=== PATIENT | female | born 1985 | race Caucasian/White ===

== ENCOUNTER → 2021-04-03 10:04 | Outpatient (CLI) | payer BC, SELFPAY ==
--- NOTE | ~2021-04-03 | XR_ITS ---
EXAMINATION: XR cervical spine 4-5V DATE: 04/03/2021 10:42 INDICATION: Neck pain. TECHNIQUE: 4 views of cervical spine were obtained. COMPARISON: None. FINDINGS: There is kyphosis of cervical spine. Vertebral body heights are normal. There is mildly dec reased disc height at C5-C6 with endplate osteophytes. The facet joints are normal. No central canal stenosis or prevertebral soft tissue swelling. IMPRESSION: 1. Mild spondylosis at C5-C6. Reviewed, dictated and finalized at location A. [facility]
== END ==
PROVIDERS: PCP Physician Assistant; Visit Provider Physician Assistant
DX: M47.892 Other spondylosis, cervical region (principal)
CPT/HCPCS: 72050

== ENCOUNTER 2022-05-29 10:08 | Emergency (ER) | payer BC, SELFPAY ==
[2022-05-29 10:20] VITALS: BP 126/81; PULSE 103; RESP 16; TEMP 37.3; O2SAT 99
[2022-05-29 10:47] VITALS: BP 126/81; PULSE 103; RESP 16; TEMP 37.3; O2SAT 99
--- NOTE | 2022-05-29 10:47 | ED.URI ---
HPI - URI/Sore Throat General Chief Complaint: Upper Respiratory Infection Stated Complaint: sinus/ear pressure,sore throat,marlene Time Seen by Provider: 05/29/22 10:48 Source: patient, RN notes reviewed and old records reviewed Mode of arrival: ambulatory Limitations: no limitations History of Present Illness HPI Narrative: 30-year-old female presents to the [facility] with complaints of sinus pressure, ear pressure, sore throat that started last night. Patient reports that she felt hot. Has taken Tylenol and Motrin Related Data Home Medications Medication Instructions Recorded Confirmed Claritin 05/29/22 cholecalciferol (vitamin D3) 05/29/22 sertraline 25 mg tablet mg 05/29/22 Allergies Allergy/AdvReac Type Severity Reaction Status Date / Time No Known Allergies Allergy Unverified 05/29/22 10:26 Review of Systems Review of Systems: All systems reviewed & are unremarkable except as noted in HPI and below Constitutional: Constitutional: Reports as per HPI and Reports fever(s) (Subjective, hot flashes) Eyes: Eyes: Reports no additional eye complaints ENT: Reports as per HPI, Reports nasal congestion and Reports sore throat Cardiovascular: Cardiovascular: Reports no additional cardiovascular complaints, Denies chest pain and Denies dyspnea Respiratory: Respiratory: Reports no additional respiratory complaints, Denies chest congestion, Denies cough and Denies dyspnea Gastrointestinal: Gastrointestinal: Reports no additional gastrointestinal complaints, Denies abdominal pain, Denies nausea and Denies vomiting Musculoskeletal: Musculoskeletal: Reports no additional musculoskeletal complaints Integumentary/Breasts: Skin/Breast: Reports system reviewed and no additional complaints, except as docu Neurologic: Reports system reviewed and no additional complaints, except as documented Psychiatric: Psychiatric: Reports no additional psychiatric complaints Allergic/Immunologic: Allergic/Immunologic: Reports no additional allergic/immunologic complaints PMFSH Past Medical History Medical History (Updated 05/29/22 @ 11:29 by Amaya Chu APRN) Patient denies medical problems Social History Social History Smoking status: Never smoker Comments At the time of my signature, I reviewed and agree with the nursing past medical, surgical, social, and family history. There is no relevant family history pertinent to the patient complaint. Exam Const: General: cooperative, healthy appearing, comfortable, no acute distress, well developed, alert and well nourished Nutritional Appearance: well nourished Orientation/consciousness: patient oriented x3 Limitations: no limitations HENMT: Head: normal to inspection Ears: hearing grossly normal bilaterally and external ears normal Face/Nose/Sinus: Normal external nose present, Normal nares present, Normal nasal mucous membranes and turbinates present and normal facial exam Face and sinus: normal facial exam Mouth: Yes Normal oral and palatal mucosa present, Yes lip normal and Yes moist mucous membranes Throat: uvula midline, abnormal tonsil bilateral erythema, exudates and hypertrophy 2+ and posterior oropharynx abnormal edema, erythema and exudates Eyes: General: appearance normal, both eyes and all related structures Alignment and Position: alignment normal Periorbital: periorbital findings normal Conjunctivae: conjunctivae normal Pupils: Equal, round and reactive pupils present EOM: EOMs intact bilaterally Neck: Neck: normal visual inspection, full ROM, no lymphadenopathy and no meningeal signs Chest: Chest palpation & inspection: normal inspection of the chest Resp: Effort & Inspection: normal respiratory effort and able to speak in complete sentences Auscultation: clear to auscultation bilaterally, no crackles, no rales, no rhonchi and no wheezes Cardio: Rate: regular rate Rhythm: regular rhythm B
== END 2022-05-29 11:07 | disposition home or self-care (01) ==
PROVIDERS: Emergency Provider Nurse Practitioner; PCP Physician Assistant
DX: J02.0 Streptococcal pharyngitis (principal)
CPT/HCPCS: 87880; 99213; G0463

== ENCOUNTER 2022-11-09 09:21 | Emergency (ER) | payer BC, SELFPAY ==
[2022-11-09 09:35] VITALS: BP 127/78; PULSE 74; RESP 16; TEMP 37.1; O2SAT 98
--- NOTE | 2022-11-09 09:39 | ED.URI ---
HPI - URI/Sore Throat General Stated Complaint: Dizziness/Ears Irritation Time Seen by Provider: 11/09/22 09:41 Source: patient, RN notes reviewed and old records reviewed Mode of arrival: ambulatory Limitations: no limitations History of Present Illness HPI Narrative: 37-year-old female presents to the [facility] with complaints Related Data Home Medications Medication Instructions Recorded Confirmed cholecalciferol (vitamin D3) 1 cap PO DAILY 05/29/22 11/09/22 sertraline 25 mg tablet 25 mg PO DAILY 05/29/22 11/09/22 Zyrtec 10 m PO DAILY 11/09/22 11/09/22 epinephrine 0.3 mg/0.3 mL 0.3 mg subcut DIRECTED 11/09/22 11/09/22 injection, auto-injector fluticasone propionate 50 2 spray intranasal DAILY 11/09/22 11/09/22 mcg/actuation nasal spray,suspension montelukast 10 mg tablet 10 mg PO DAILY 11/09/22 11/09/22 Allergies Allergy/AdvReac Type Severity Reaction Status Date / Time No Known Allergies Allergy Verified 11/09/22 09:41 Review of Systems Review of Systems: All systems reviewed & are unremarkable except as noted in HPI and below Constitutional: Constitutional: Reports no additional constitutional complaints Eyes: Eyes: Reports no additional eye complaints ENT: Reports system reviewed and no additional complaints, except as documented Cardiovascular: Cardiovascular: Reports no additional cardiovascular complaints, Denies chest pain and Denies dyspnea Respiratory: Respiratory: Reports no additional respiratory complaints, Denies chest congestion, Denies cough and Denies dyspnea Gastrointestinal: Gastrointestinal: Reports no additional gastrointestinal complaints, Denies abdominal pain, Denies nausea and Denies vomiting Musculoskeletal: Musculoskeletal: Reports no additional musculoskeletal complaints Integumentary/Breasts: Skin/Breast: Reports system reviewed and no additional complaints, except as docu Neurologic: Reports system reviewed and no additional complaints, except as documented Psychiatric: Psychiatric: Reports no additional psychiatric complaints Allergic/Immunologic: Allergic/Immunologic: Reports no additional allergic/immunologic complaints PMFSH Past Medical History Medical History (Updated 11/09/22 @ 09:48 by Amaya Chu APRN) Patient denies medical problems Social History Social History Smoking status: Never smoker Comments At the time of my signature, I reviewed and agree with the nursing past medical, surgical, social, and family history. There is no relevant family history pertinent to the patient complaint. Exam Const: General: cooperative, healthy appearing, comfortable, no acute distress, well developed, alert and well nourished Nutritional Appearance: well nourished Orientation/consciousness: patient oriented x3 Limitations: no limitations HENMT: Head: normal to inspection Ears: hearing grossly normal bilaterally and external ears normal Face/Nose/Sinus: Normal external nose present, Normal nares present, Normal nasal mucous membranes and turbinates present and normal facial exam Face and sinus: normal facial exam Mouth: Yes Normal oral and palatal mucosa present, Yes lip normal and Yes moist mucous membranes Throat: posterior oropharynx normal and uvula midline Eyes: General: appearance normal, both eyes and all related structures Alignment and Position: alignment normal Periorbital: periorbital findings normal Pupils: Equal, round and reactive pupils present EOM: EOMs intact bilaterally Neck: Neck: normal visual inspection, full ROM, no lymphadenopathy and no meningeal signs Chest: Chest palpation & inspection: normal inspection of the chest Resp: Effort & Inspection: normal respiratory effort and able to speak in complete sentences Auscultation: clear to auscultation bilaterally, no crackles, no rales, no rhonchi and no wheezes Cardio: Rate: regular rate Rhythm: regular rhythm Back/Spin
== END 2022-11-09 09:53 | disposition home or self-care (01) ==
PROVIDERS: Emergency Provider Nurse Practitioner; PCP Physician Assistant
DX: R42 Dizziness and giddiness (principal); H65.03 Acute serous otitis media, bilateral
CPT/HCPCS: 99213; G0463

== ENCOUNTER 2023-02-06 08:15 | Emergency (ER) | payer BC, SELFPAY ==
--- NOTE | 2023-02-06 08:18 | ED.URI ---
HPI - URI/Sore Throat General Chief Complaint: Upper Respiratory Infection Stated Complaint: cpngestion, cough Time Seen by Provider: 02/06/23 08:17 Source: patient Mode of arrival: ambulatory Limitations: no limitations History of Present Illness HPI Narrative: Ivett is a 37-year-old female patient presenting to the clinic today with complaints of congestion and a cough x 2 days. She reports no known fever or chills. Woke up this morning with a sore throat and exudate on her tonsils. MD elicited complaint: cough, sore throat and nasal congestion Related Data Home Medications Medication Instructions Recorded Confirmed sertraline 25 mg tablet 25 mg PO DAILY 05/29/22 02/06/23 epinephrine 0.3 mg/0.3 mL 0.3 mg subcut DIRECTED 11/09/22 02/06/23 injection, auto-injector montelukast 10 mg tablet 10 mg PO DAILY 11/09/22 02/06/23 cetirizine 10 mg tablet (Zyrtec) 10 mg PO DAILY 02/06/23 02/06/23 fluticasone propionate 50 2 spray intranasal DAILY 02/06/23 02/06/23 mcg/actuation nasal spray,suspension Allergies Allergy/AdvReac Type Severity Reaction Status Date / Time No Known Allergies Allergy Verified 02/06/23 08:23 Review of Systems Review of Systems: Pertinent positives per HPI. Patient denies any fever, chills, rash, headache, visual changes, dizziness, shortness of breath, chest pain, palpitations, nausea, vomiting, diarrhea, constipation, abdominal pain, or any urinary issues. PMFSH Past Medical History Medical History Patient denies medical problems Social History Social History Smoking status: Never smoker Comments At the time of my signature, I reviewed and agree with the nursing past medical, surgical, social, and family history. There is no relevant family history pertinent to the patient complaint. Exam Narrative: General: Well-developed, well nourished, in no apparent distress Head: Normocephalic, atraumatic Eyes: Pupils equally round and reactive to light bilaterally, EOM intact, sclera and conjunctive clear, no discharge, lids normal Ears: TMs intact and clear, ear canals clear, no drainage, grossly hearing normal. Nose: Nares patent, clear nasal discharge, no inflammation, no sinus tenderness. Mouth: Oropharynx red with mild tonsillar enlargement with exudate noted to the right tonsil without lesions or masses, good dentition, MMM. Neck: Supple, trachea midline, mild enlargement of anterior cervical nodes, no thyroid masses or goiter palpable. Cardio: Regular rate and rhythm, s1 and s2 normal, no murmur appreciated. Resp: Clear to auscultation bilaterally anteriorly and posteriorly, no rhonchi, rales, wheezing or rubs Course Course Emergency Course: Portions of this record may have been created with voice recognition software. Level of Care: Express Care Visit Vital Signs Vital signs: Vital signs reviewed MDM - URI/Sore Throat MDM Narrative Medical decision making narrative: At the time of visit patient is resting comfortably on the exam table. COVID and strep test was performed and negative. I suspect patient has URI/exudate of pharyngitis. We will send strep for culture. Supportive measures were discussed with the patient she voiced understanding discharge instructions and agrees to treatment plan. Differential Diagnosis Differential diagnosis: Likely upper respiratory infection, otitis media, sinusitis, viral infection, bronchitis, influenza, pharyngitis and other (COVID) Discharge Plan Discharge Clinical Impression: Upper respiratory infection Qualifiers: URI type: unspecified URI Qualified Code(s): J06.9 - Acute upper respiratory infection, unspecified Pharyngitis Qualifiers: Pharyngitis/tonsillitis etiology: unspecified etiology Qualified Code(s): J02.9 - Acute pharyngitis, unspecified Patient Disposition: Home, Self-Care Conditio
[2023-02-06 08:25] VITALS: BP 108/73; PULSE 84; RESP 16; TEMP 36.9; O2SAT 98
== END 2023-02-06 08:53 | disposition home or self-care (01) ==
PROVIDERS: Emergency Provider Nurse Practitioner Family; PCP Physician Assistant
DX: J06.9 Acute upper respiratory infection, unspecified (principal); J02.9 Acute pharyngitis, unspecified; Z79.899 Other long term (current) drug therapy; Z20.822 Contact with and (suspected) exposure to COVID-19
CPT/HCPCS: 87081; 87426; 87880; 99213; C9803; G0463

== ENCOUNTER 2023-05-15 10:39 | Emergency (ER) | payer BC, SELFPAY ==
[2023-05-15 10:50] VITALS: BP 128/82; PULSE 78; RESP 16; TEMP 37.3; O2SAT 99
--- NOTE | 2023-05-15 11:18 | ED.GENADULT ---
HPI - General Adult General Chief complaint: Upper Respiratory Infection Stated complaint: sore throat/cough Time Seen by Provider: 05/15/23 11:24 History of Present Illness HPI narrative: 37-year-old female presented for complaint of sinus congestion and mild cough over the past few days. She endorses her tested positive for COVID last week. Patient takes Zyrtec and Flonase daily. Not taking anything additional for symptoms. Denies shortness of breath, wheezing, nausea, vomiting, diarrhea, fevers or chills. Related Data Home Medications Medication Instructions Recorded Confirmed sertraline 25 mg tablet 25 mg PO DAILY 05/29/22 05/15/23 epinephrine 0.3 mg/0.3 mL 0.3 mg subcut DIRECTED 11/09/22 05/15/23 injection, auto-injector montelukast 10 mg tablet 10 mg PO DAILY 11/09/22 05/15/23 cetirizine 10 mg tablet (Zyrtec) 10 mg PO DAILY 02/06/23 05/15/23 fluticasone propionate 50 2 spray intranasal DAILY 02/06/23 05/15/23 mcg/actuation nasal spray,suspension famotidine 40 mg tablet 40 mg PO DAILY 05/15/23 05/15/23 triamcinolone acetonide 0.1 % 1 applic topical TID 05/15/23 05/15/23 lotion Allergies Allergy/AdvReac Type Severity Reaction Status Date / Time No Known Allergies Allergy Verified 05/15/23 10:46 Review of Systems Review of Systems: CONSTITUTIONAL: Denies body aches, fever, chills, or sweats. EYES: Denies visual changes, redness, or discharge. ENT: reports rhinorrhea, congestion CARDIOVASCULAR: Denies chest pain, palpitations, or edema. RESPIRATORY: Denies dyspnea. GASTROINTESTINAL: Denies abdominal pain, nausea, vomiting, or diarrhea. SKIN: Denies rash, itching, or wounds. MUSCULOSKELETAL: Denies back pain, joint pain, or myalgia. NEUROLOGIC: Denies headache PMFSH Past Medical History Medical History Patient denies medical problems Social History Social History Smoking status: Never smoker Exam Narrative: GENERAL: well-appearing, no acute distress. EYES: conjunctivae clear ENT: Mucous membranes moist. TMs pearly christensen with normal light reflex bilaterally; no tragal tenderness. Oropharynx not erythematous without lesions. Tonsils not enlarged and without exudate. No drooling, no hoarseness, no trismus, uvula midline. No tripod positioning, hot potato voice, or soft palate swelling. NECK: Supple. No lymphadenopathy CHEST: Clear to auscultation, breath sounds equal. No respiratory distress, speaks in full sentences. HEART: Regular rate and rhythm. No murmur heard. SKIN: Warm, dry, no rash. NEURO: Alert and oriented x3. Course Course Emergency Course: Patient is aware of diagnosis, understands and agrees to treatment plan. Anticipatory guidance given. Patient agrees to follow-up as directed and is aware of reasons to seek care at the emergency department. Portions of this record may have been created with voice recognition software Level of Care: Express Care Visit Vital Signs Vital signs: Vital Signs Temperature 99.1 F 05/15/23 10:50 Pulse Rate 78 05/15/23 10:50 Respiratory Rate 16 05/15/23 10:50 Blood Pressure 128/82 05/15/23 10:50 Pulse Oximetry 99 05/15/23 10:50 Oxygen Delivery Room Air 05/15/23 10:50 Temperature 99.1 F 05/15/23 10:50 Pulse Rate 78 05/15/23 10:50 Respiratory Rate 16 05/15/23 10:50 Blood Pressure 128/82 05/15/23 10:50 Pulse Oximetry 99 05/15/23 10:50 Oxygen Delivery Room Air 05/15/23 10:50 Medical Decision Making MDM Narrative Medical decision making narrative: Neg covid, result reviewed with pt. Discussed physical exam findings. Advised supportive measures and signs/symptoms to go to the ER. Pt is appropriate for outpt treatment and f/u. Differential Diagnosis Differential Diagnosis: influenza, covid, sinusitis, OM, strep pharyngitis, URI Vital Signs Vital Signs:
== END 2023-05-15 11:40 | disposition home or self-care (01) ==
PROVIDERS: Emergency Provider Nurse Practitioner Family; PCP Physician Assistant
DX: J06.9 Acute upper respiratory infection, unspecified (principal); Z20.822 Contact with and (suspected) exposure to COVID-19
CPT/HCPCS: 87426; 99213; G0463

== ENCOUNTER 2023-08-02 09:08 | Emergency (ER) | payer BC, SELFPAY ==
--- NOTE | ~2023-08-02 | XR_ITS ---
EXAMINATION: XR chest 2V DATE: 08/02/2023 09:55 INDICATION: Chest tightness. TECHNIQUE: Frontal and lateral views of the chest were obtained on 3 radiographs. COMPARISON: None. FINDINGS: There is mild scarring at the lung apices. No pleural effusion or pneumothorax. The heart s ize is normal. IMPRESSION: 1. Mild scarring at the lung apices. Reviewed, dictated and finalized at location A.
--- NOTE | 2023-08-02 09:09 | ECG_ITS ---
Measurements Intervals [place] Rate: 89 P: 39 SD: 163 QRS: -15 QRSD: 106 T: -10 QT: 350 QTc: 426 Interpretive Statements SINUS RHYTHM NONSPECIFIC T-WAVE ABNORMALITY NO PREVIOUS ECG AVAILABLE FOR COMPARISON Electronically Signed On 08-02-2023 12:33:24 CDT by Noman Zaidi M.D.
[2023-08-02 09:25] VITALS: BP 127/82; PULSE 88; PULSE 89; RESP 12; TEMP 36.7; O2SAT 98; O2SAT 99
--- NOTE | 2023-08-02 09:29 | ED.CHESTPAIN ---
HPI - Chest Pain General Chief Complaint: Chest Pain Stated Complaint: chest tightness Time Seen by Provider: 08/02/23 09:22 Source: patient Mode of arrival: ambulatory Limitations: no limitations History of Present Illness HPI narrative: Ivett is a 38-year-old female patient presenting to the ER today with complaints of left-sided chest tightness. States that it feels like it is squeezing sensation to left side of her chest. Rates the discomfort 1 to 2/10 currently. Reports that the symptoms started about an hour ago. Does have a family history of heart disease. States that her father had a heart attack 8 years ago and her grandfather has a pacemaker. No personal cardiac history for herself. Denies smoking. No history of hyperlipidemia, she is not currently taking any control. She denies any associated shortness of breath with her symptoms. Pain does not radiate anywhere. Does have history of anxiety. She denies any respiratory symptoms. Related Data Home Medications Medication Instructions Recorded Confirmed sertraline 25 mg tablet 25 mg PO DAILY 05/29/22 05/15/23 epinephrine 0.3 mg/0.3 mL 0.3 mg subcut DIRECTED 11/09/22 05/15/23 injection, auto-injector montelukast 10 mg tablet 10 mg PO DAILY 11/09/22 05/15/23 cetirizine 10 mg tablet (Zyrtec) 10 mg PO DAILY 02/06/23 05/15/23 fluticasone propionate 50 2 spray intranasal DAILY 02/06/23 05/15/23 mcg/actuation nasal spray,suspension famotidine 40 mg tablet 40 mg PO DAILY 05/15/23 05/15/23 triamcinolone acetonide 0.1 % 1 applic topical TID 05/15/23 05/15/23 lotion Allergies Allergy/AdvReac Type Severity Reaction Status Date / Time No Known Allergies Allergy Verified 05/15/23 10:46 Review of Systems Review of Systems: Pertinent positives per HPI. Patient denies any fever, chills, rash, headache, visual changes, dizziness, cough, runny nose, sore throat, shortness of breath, chest pain, palpitations, nausea, vomiting, diarrhea, constipation, abdominal pain, or any urinary issues. [facility], [facility] Past Medical History Medical History Patient denies medical problems Social History Social History Smoking status: Never smoker Comments At the time of my signature, I reviewed and agree with the nursing past medical, surgical, social, and family history. There is no relevant family history pertinent to the patient complaint. Exam Narrative: General: Well-developed, well nourished, in no apparent distress Head: Normocephalic, atraumatic. Chest wall: Even rise and fall of the chest wall with respirations, pain to the left chest non reproducible, no bruising or swelling noted Cardio: Regular rate and rhythm, s1 and s2 normal, no murmur appreciated. Resp: Clear to auscultation bilaterally, no rhonchi, rales, wheezing or rubs. Extremities: No deformity, no edema, no cyanosis, capillary refill less than 2 seconds, peripheral pulses palpable and strong. Integumentary: [place], warm, and dry, intact without lesion, no rashes. Course Course Emergency Course: Portions of this record may have been created with voice recognition software. Vital Signs Vital signs: Vital Signs Temperature 36.7 C 08/02/23 09:25 Pulse Rate 89 08/02/23 09:25 Respiratory Rate 12 08/02/23 09:25 Blood Pressure 127/82 08/02/23 09:25 Pulse Oximetry 98 08/02/23 09:25 Oxygen Delivery Room Air 08/02/23 09:25 Temperature 36.7 C 08/02/23 09:25 Pulse Rate 88 08/02/23 10:43 Respiratory Rate 14 08/02/23 10:43 Blood Pressure 118/83 08/02/23 10:43 Pulse Oximetry 96 08/02/23 10:43 Oxygen Delivery Room Air 08/02/23 09:25 Vital signs reviewed MDM - Chest Pain MDM Narrative Medical decision making narrative: At the time of visit patient is resting comfortably on the exam table. Patient appears to be nontoxic.
[2023-08-02] MEDS: ASPIRIN 81 MG CHEWABLE TABLET 324 MG PO (09:39)
[2023-08-02 09:47] LABS: Basophils Absolute Auto 0.1 K/mm3 (0.0-0.1); Basophils Percent Auto 0.7 % (0.2-1.2); Eosinophils Absolute Auto 0.2 K/mm3 (0-0.3); Eosinophils Percent Auto 1.5 % (0-4.4); Hematocrit 42.9 % (37.0-47.0); Hemoglobin 14.2 g/dL (12.0-15.0); Immature Granulocyte Absolute 0.04 K/mm3 (0.00-0.031); Immature Granulocyte Percent A 0.4 % (0-0.5); Lymphocytes Absolute Auto 2.95 K/mm3 (0.9-3.2); Lymphocytes Percent Auto 28.7 % (18.3-44.2); Mean Corpuscular HGB Conc 33.1 g/dl (32-36); Mean Corpuscular Hemoglobin 28.5 pg (26-34); Mean Platelet Volume 10.4 fl (7.4-10.4); Monocytes Absolute Auto 0.5 K/mm3 (0.1-0.6); Neutrophils Absolute Auto 6.6 K/mm3 (1.3-6.7); Neutrophils Percent Auto 63.7 % (45.5-73.1); Platelet Count Result 313 k/mm3 (150-375); Red Blood Count 4.99 M/mm3 (4.2-5.4); Red Cell Distribution Width 12.9 % (11.5-14.5); White Blood Count 10.3 K/mm3 (4.5-10.0)
[2023-08-02 10:00] LABS: Alanine Aminotransferase 34 U/L (6-35); Albumin Level 4.3 g/dL (3.5-5.1); Alkaline Phosphatase 65 U/L (38-126); Anion Gap 6 mmol/L (4-12); Aspartate Amino Transferase 34 U/L (14-36); Bilirubin,Total 0.4 mg/dL (0.2-1.3); Blood Urea Nitrogen 9 mg/dL (7-17); Calcium 9.6 mg/dL (8.4-10.2); Carbon Dioxide 25 mmol/L (22-30); Chloride 105 mmol/L (98-107); Estimated CRCL calculation 105 ml/min; Estimated Glomerular Filt Rate > 60; Glucose 157 mg/dL (65-110); Lipase 91 U/L (23-300); Potassium 3.9 mmol/L (3.4-5.0); Sodium 136 mmol/L (137-145)
[2023-08-02 10:01] LABS: INR 0.9; Prothrombin Time 12.5 Seconds (11.1-14.7)
[2023-08-02 10:02] LABS: Partial Thromboplastin Time 27.2 Seconds (22.3-36.8)
[2023-08-02 10:09] LABS: D Dimer 0.31 ug/mL (<0.48)
[2023-08-02 10:11] LABS: Troponin I < 0.012 ng/mL (0.000-0.034)
[2023-08-02 10:43] VITALS: BP 118/83; PULSE 88; RESP 14; O2SAT 96
[2023-08-02 11:21] LABS: NT Pro B Type Natriuretic Pept < 20 pg/mL (19.9-100)
--- NOTE | 2023-08-02 11:55 | ECG_ITS ---
Measurements Intervals [place] Rate: 77 P: 47 ME: 175 QRS: -3 QRSD: 100 T: -10 QT: 357 QTc: 405 Interpretive Statements SINUS RHYTHM NONSPECIFIC T-WAVE ABNORMALITY COMPARED TO ECG 08/02/2023 09:26:53 NO SIGNIFICANT CHANGES Electronically Signed On 08-02-2023 12:38:41 CDT by Noman Zaidi M.D.
[2023-08-02 12:24] LABS: Troponin I < 0.012 ng/mL (0.000-0.034)
[2023-08-02 12:52] VITALS: BP 123/87; PULSE 89; RESP 28; O2SAT 96
== END 2023-08-02 12:53 | disposition home or self-care (01) ==
PROVIDERS: Emergency Medicine; Emergency Provider Nurse Practitioner Family; PCP Physician Assistant
DX: R07.89 Other chest pain (principal)
CPT/HCPCS: 36415; 71046; 80053; 83690; 83880; 84484; 85025; 85380; 85610; 85730; 93005; 99284; A9270

== ENCOUNTER 2023-12-04 08:30 | Emergency (ER) | payer BC, SELFPAY ==
[2023-12-04 08:44] VITALS: BP 117/76; PULSE 97; RESP 16; TEMP 37.1; O2SAT 97
--- NOTE | 2023-12-04 08:44 | ED.URI ---
HPI - URI/Sore Throat General Chief Complaint: Upper Respiratory Infection Stated Complaint: sore throat,sinus congestion Time Seen by Provider: 12/04/23 09:11 History of Present Illness HPI Narrative: 38-year-old female presented for complaint of nasal congestion and drainage, sore throat and cough. Onset yesterday. Taking Flonase and Zyrtec for symptoms. Denies shortness of breath, wheezing, nausea, vomiting, diarrhea, fevers or chills. Endorses exposure to COVID. Tested negative for COVID at home yesterday. Related Data Home Medications Medication Instructions Recorded Confirmed sertraline 25 mg tablet 25 mg PO DAILY 05/29/22 05/15/23 epinephrine 0.3 mg/0.3 mL 0.3 mg subcut DIRECTED 11/09/22 05/15/23 injection, auto-injector montelukast 10 mg tablet 10 mg PO DAILY 11/09/22 05/15/23 cetirizine 10 mg tablet (Zyrtec) 10 mg PO DAILY 02/06/23 05/15/23 fluticasone propionate 50 2 spray intranasal DAILY 02/06/23 05/15/23 mcg/actuation nasal spray,suspension famotidine 40 mg tablet 40 mg PO DAILY 05/15/23 05/15/23 Allergies Allergy/AdvReac Type Severity Reaction Status Date / Time No Known Allergies Allergy Verified 12/04/23 08:37 Review of Systems Review of Systems: CONSTITUTIONAL: Denies body aches, fever, chills, or sweats. EYES: Denies visual changes, redness, or discharge. ENT: reports rhinorrhea, congestion, sore throat denies otalgia CARDIOVASCULAR: Denies chest pain, palpitations, or edema. RESPIRATORY: reports cough Denies dyspnea. GASTROINTESTINAL: Denies abdominal pain, nausea, vomiting, or diarrhea. SKIN: Denies rash, itching, or wounds. MUSCULOSKELETAL: Denies back pain, joint pain, or myalgia. NEUROLOGIC: Denies headache PMFSH Past Medical History Medical History Patient denies medical problems Social History Social History Smoking status: Never smoker Exam Narrative: GENERAL: mildly ill-appearing, no acute distress. EYES: conjunctivae clear ENT: Mucous membranes moist. TMs pearly christensen with normal light reflex bilaterally; no tragal tenderness. Oropharynx mildly erythematous without lesions. Tonsils not enlarged and without exudate. No drooling, no hoarseness, no trismus, uvula midline. No tripod positioning, hot potato voice, or soft palate swelling. NECK: Supple. No lymphadenopathy CHEST: Clear to auscultation, breath sounds equal. No respiratory distress, speaks in full sentences. HEART: Regular rate and rhythm. No murmur heard. SKIN: Warm, dry, no rash. NEURO: Alert and oriented x3. Course Course Emergency Course: Patient is aware of diagnosis, understands and agrees to treatment plan. Anticipatory guidance given. Patient agrees to follow-up as directed and is aware of reasons to seek care at the emergency department. Portions of this record may have been created with voice recognition software Level of Care: Express Care Visit Vital Signs Vital signs: Vital Signs Temperature 98.8 F 12/04/23 08:44 Pulse Rate 97 12/04/23 08:44 Respiratory Rate 16 12/04/23 08:44 Blood Pressure 117/76 12/04/23 08:44 Pulse Oximetry 97 12/04/23 08:44 Oxygen Delivery Room Air 12/04/23 08:44 Temperature 98.8 F 12/04/23 08:44 Pulse Rate 97 12/04/23 08:44 Respiratory Rate 16 12/04/23 08:44 Blood Pressure 117/76 12/04/23 08:44 Pulse Oximetry 97 12/04/23 08:44 Oxygen Delivery Room Air 12/04/23 08:44 MDM - URI/Sore Throat MDM Narrative Medical decision making narrative: Neg covid and strep result reviewed with pt. Advise supportive treatments. Patient is appropriate for outpatient treatment and follow-up. Differential Diagnosis Differential diagnosis: Likely upper respiratory infection, viral infection and pharyngitis Lab Data Labs: Lab Results 12/04/23 Range/Units 09:02 POC Grp A Strep Screen P
[2023-12-04 09:04] LABS: EDSTREPNEGPOS1 Presumptive Negative
== END 2023-12-04 09:25 | disposition home or self-care (01) ==
PROVIDERS: Emergency Provider Nurse Practitioner Family; PCP Physician Assistant
DX: B34.9 Viral infection, unspecified (principal); Z20.822 Contact with and (suspected) exposure to COVID-19
CPT/HCPCS: 87081; 87426; 87880; 99213; G0463

== ENCOUNTER 2023-12-29 11:54 | Emergency (ER) | payer BC, SELFPAY ==
[2023-12-29 12:11] VITALS: BP 140/113; PULSE 97; RESP 15; TEMP 37.7; O2SAT 99
--- NOTE | 2023-12-29 13:04 | ED.URI ---
HPI - URI/Sore Throat General Chief Complaint: Upper Respiratory Infection Stated Complaint: sore throat,cough Time Seen by Provider: 12/29/23 13:04 Source: patient, RN notes reviewed and old records reviewed Mode of arrival: ambulatory Limitations: no limitations History of Present Illness HPI Narrative: Patient with 1 day history of runny nose, sore throat, headache, fever. Taking [id number] with minimal relief. Voices no other concerns or complaints at this time. Denies any injury or trauma. Related Data Home Medications Medication Instructions Recorded Confirmed epinephrine 0.3 mg/0.3 mL 0.3 mg subcut DIRECTED 11/09/22 12/29/23 injection, auto-injector montelukast 10 mg tablet 10 mg PO DAILY 11/09/22 12/29/23 cetirizine 10 mg tablet (Zyrtec) 10 mg PO DAILY 02/06/23 12/29/23 fluticasone propionate 50 2 spray intranasal DAILY 02/06/23 12/29/23 mcg/actuation nasal spray,suspension famotidine 40 mg tablet 40 mg PO DAILY 05/15/23 12/29/23 sertraline 25 mg tablet 25 mg PO DAILY 12/29/23 12/29/23 Allergies Allergy/AdvReac Type Severity Reaction Status Date / Time No Known Allergies Allergy Verified 12/29/23 12:16 Review of Systems Review of Systems: All systems reviewed & are unremarkable except as noted in HPI and below Constitutional: Constitutional: Reports as per HPI, Reports no additional constitutional complaints, Reports fever(s) and Reports headache(s) ENT: Reports system reviewed and no additional complaints, except as documented, Reports as per HPI, Reports headache(s), Reports nasal congestion, Reports nasal discharge and Reports sore throat Cardiovascular: Cardiovascular: Reports no additional cardiovascular complaints Respiratory: Respiratory: Reports no additional respiratory complaints Gastrointestinal: Gastrointestinal: Reports no additional gastrointestinal complaints [facility] Past Medical History Medical History Patient denies medical problems Social History Social History Smoking status: Never smoker Exam Const: General: cooperative, no acute distress, alert and awake Orientation/consciousness: oriented to person, oriented to place and oriented to time HENMT: Head: normal to inspection Ears: TM's normal bilaterally Mouth: Yes moist mucous membranes Throat: posterior oropharynx abnormal erythema Resp: Effort & Inspection: normal respiratory effort and able to speak in complete sentences Auscultation: clear to auscultation bilaterally, no crackles, no rales, no rhonchi and no wheezes Cardio: Palpation: normal PMI Rate: regular rate Rhythm: regular rhythm Heart sounds: S1 normal heart sound present and S2 normal heart sound present Neuro: General: oriented to person, oriented to place and oriented to time Cranial nerves: Yes CN's II-XII intact bilaterally Psych: Appearance: grossly normal Thought process: Normal thought process present Insight: Good insight present (Psych) Judgement: Good judgement present (Psych) Course Course Level of Care: Express Care Visit Vital Signs Vital signs: Vital Signs Oxygen Delivery Room Air 12/29/23 12:10 Temperature 99.9 F H 12/29/23 12:11 Pulse Rate 97 12/29/23 12:11 Respiratory Rate 15 12/29/23 12:11 Blood Pressure 136/89 12/29/23 13:29 Pulse Oximetry 99 12/29/23 12:11 Oxygen Delivery Room Air 12/29/23 12:11 MDM - URI/Sore Throat MDM Narrative Medical decision making narrative: Negative flu, negative COVID, negative strep. Blood pressure noted to be elevated. Patient is urged to follow up with primary care provider regarding this. Please treat URI symptoms at home. Patient is nontoxic appearing, stable for discharge home with supportive care measures. Discharge instructions reviewed with patient, as well as provided in writing per nursing staff. The instructions also incl
[2023-12-29 13:29] VITALS: BP 136/89
[2023-12-29 13:31] LABS: EDSTREPNEGPOS1 Negative
[2023-12-29 13:31] LABS: EDINFLUASCREEN Negative; EDINFLUBSCREEN Negative
== END 2023-12-29 13:50 | disposition home or self-care (01) ==
PROVIDERS: Emergency Provider Nurse Practitioner Family; PCP Physician Assistant
DX: J06.9 Acute upper respiratory infection, unspecified (principal); R03.0 Elevated blood-pressure reading, without diagnosis of hypertension; Z20.822 Contact with and (suspected) exposure to COVID-19
CPT/HCPCS: 87081; 87426; 87804; 87880; 99213; G0463

== ENCOUNTER 2024-10-11 13:02 | Emergency (ER) | payer BC, SELFPAY ==
[2024-10-11 13:09] VITALS: BP 128/71; PULSE 74; RESP 20; TEMP 36.5; O2SAT 100
--- NOTE | 2024-10-11 13:10 | ED.GENADULT ---
HPI - General Adult General Chief complaint: Ear Stated complaint: Ears Irritation/Dizziness Time Seen by Provider: 10/11/24 13:10 Source: patient, RN notes reviewed and old records reviewed Mode of arrival: ambulatory Limitations: no limitations History of Present Illness HPI narrative: 39-year-old female presents to the [facility] with concerns of increased ear pressure for the last week that she has had intermittent dizziness. States that she does take allergy medication Flonase, Astelin and Zyrtec every day. Denies any fevers, chest pain, shortness of breath, cough. Related Data Home Medications ?Medication ?Instructions ?Recorded ?Confirmed ?Last Taken ?Type cetirizine 10 mg tablet (Zyrtec) 10 mg PO DAILY 02/06/23 12/29/23 Unknown History fluticasone propionate 50 2 spray intranasal DAILY 02/06/23 12/29/23 Unknown History mcg/actuation nasal spray,suspension sertraline 25 mg tablet 25 mg PO DAILY 12/29/23 12/29/23 Unknown History azelastine 137 mcg (0.1 %) nasal intranasal 10/11/24 Unknown History spray Allergies Allergy/AdvReac Type Severity Reaction Status Date / Time No Known Allergies Allergy Verified 10/11/24 13:20 Review of Systems Review of Systems: All systems reviewed & are unremarkable except as noted in HPI and below Constitutional: Constitutional: Reports no additional constitutional complaints ENT: Reports as per HPI Cardiovascular: Cardiovascular: Reports no additional cardiovascular complaints, Denies chest pain and Denies dyspnea Respiratory: Respiratory: Reports no additional respiratory complaints, Denies chest congestion, Denies cough and Denies dyspnea Musculoskeletal: Musculoskeletal: Reports no additional musculoskeletal complaints Integumentary/Breasts: Skin/Breast: Reports system reviewed and no additional complaints, except as docu PMFSH Past Medical History Medical History Patient denies medical problems Social History Social History Smoking status: Never smoker Comments At the time of my signature, I reviewed and agree with the nursing past medical, surgical, social, and family history. There is no relevant family history pertinent to the patient complaint. Exam Const: General: cooperative, healthy appearing, comfortable, no acute distress, well developed, alert and well nourished Nutritional Appearance: well nourished Orientation/consciousness: patient oriented x3 Limitations: no limitations HENMT: Head: normal to inspection Ears: hearing grossly normal bilaterally, external ears normal, EAC's normal, mastoids normal, no periauricular adenopathy and TM abnormal bulging on the left and with fluid behind the TM bilateral Face and sinus: normal facial exam, sinuses nontender and face symmetric Mouth: Yes Normal oral and palatal mucosa present, Yes lip normal, Yes tongue normal and Yes moist mucous membranes Throat: posterior oropharynx normal, uvula not midline, postnasal drainage and no uvular edema Eyes: General: appearance normal, both eyes and all related structures Alignment and Position: alignment normal Neck: Neck: normal visual inspection, full ROM, no lymphadenopathy and no meningeal signs Chest: Chest palpation & inspection: normal inspection of the chest Resp: Effort & Inspection: normal respiratory effort and able to speak in complete sentences Auscultation: clear to auscultation bilaterally, no crackles, no rales, no rhonchi and no wheezes Cardio: Rate: regular rate Skin: General skin exam: normal color and no rashes or lesions noted Neuro: General: patient oriented x3, gait normal, moves all extremities and no meningeal signs Cognition (Neuro): normal cognition Speech: normal speech Gait exam (Neuro): Normal gait present Extrem: General: normal to inspection, full ROM, capillary refill normal and normal gait Psych: Appearance: grossly normal and well kempt Mental Status: mental status grossly normal Speech and movement: Normal speech and movement present and Clear speech present Affect: normal affect Attitude: cooperative Course Course Level of Care: Express Care Visit Vital Signs Vital signs: Vital Signs Temperature 97.7 F 10/11/24 13:09 Pulse Rate 74 10/11/24 13:09 Respiratory Rate 20 10/11/24 13:09 Blood Pressure 128/71 10/11/24 13:09 Pulse Oximetry 100 10/11/24 13:09 Oxygen Delivery Room Air 10/11/24 13:09 Temperature 97.7 F 10/11/24 13:09 Pulse Rate 74 10/11/24 13:09 Respiratory Rate 20 10/11/24 13:09 Blood Pressure 128/71 10/11/24 13:09 Pulse Oximetry 100 10/11/24 13:09 Oxygen Delivery Room Air 10/11/24 13:09 Reviewed Medical Decision Making MDM Narrative Medical decision making narrative: Patient sitting comfortably in exam room. Nontoxic, vitals stable. Patient in no acute distress Patient presents for 1 week history of ear pressure No acute findings other than clear fluid behind bilateral TMs. Patient appropriate for outpatient treatment with close follow-up. Discharge instructions reviewed with patient, as well as provided in writing per nursing staff. The instructions also include specific and strict return/GO TO THE ER as well as f/u information. All questions have been answered, and the patient deny any further questions with discharge and discharge plan. Some parts of this dictation were generated by voice recognition software and may contain typographical and/or grammatical inaccuracies. Differential Diagnosis Differential Diagnosis: Otitis media, serous otitis, otitis externa URI, allergies Medical Records Medical records reviewed: Yes I reviewed the external patient's medical records. Vital Signs Vital Signs: Vital Signs Temperature 97.7 F 10/11/24 13:09 Pulse Rate 74 10/11/24 13:09 Respiratory Rate 20 10/11/24 13:09 Blood Pressure 128/71 10/11/24 13:09 Pulse Oximetry 100 10/11/24 13:09 Oxygen Delivery Room Air 10/11/24 13:09 Temperature 97.7 F 10/11/24 13:09 Pulse Rate 74 10/11/24 13:09 Respiratory Rate 20 10/11/24 13:09 Blood Pressure 128/71 10/11/24 13:09 Pulse Oximetry 100 10/11/24 13:09 Oxygen Delivery Room Air 10/11/24 13:09 Reviewed Lab Data Lab results reviewed: Yes I reviewed the patient's lab results. Labs: Reviewed Critical Care Time Critical Care Time Critical Care Time: No Discharge Plan Discharge Clinical Impression: Dizziness Acute serous otitis media of left ear Qualifiers: Recurrence: not specified as recurrent Qualified Code(s): H65.02 - Acute serous otitis media, left ear Patient Disposition: Home Condition: Stable Instructions: Antibiotic Form, Dizziness (ED), Fluid In The Ear (Serous Otitis Media) (ED) Additional Instructions: Continue your home allergy medication Take medications as prescribed No improvement in 7 days follow-up with primary care provider For new or worsening symptoms please go directly to the nearest emergency room Patient Language: Amharic Prescriptions: New meclizine 25 mg tablet 25 mg PO BID PRN (Reason: dizziness) Qty: 15 0RF methylprednisolone [Medrol (Armando)] 4 mg tablets,dose pack See Rx Instructions PO .COMPLEX Qty: 21 0RF Rx Instructions: orally per package directions No Action sertraline 25 mg tablet 25 mg PO DAILY azelastine 137 mcg (0.1 %) spray,non-aerosol INTRANASAL cetirizine [Zyrtec] 10 mg Tablet 10 mg PO DAILY fluticasone propionate 50 mcg/actuation spray,suspension 2 spray INTRANASAL DAILY Follow-up/Referrals: Shen,MARY Peterson [Primary Care Provider] - Stand Alone Forms: Work/School Release IP Time of Disposition: 13:21
== END 2024-10-11 13:26 | disposition home or self-care (01) ==
PROVIDERS: Emergency Provider Nurse Practitioner; PCP Physician Assistant
DX: R42 Dizziness and giddiness (principal); H65.02 Acute serous otitis media, left ear
CPT/HCPCS: 99213; G0463

== ENCOUNTER 2024-12-07 08:07 | Emergency (ER) | payer BC, SELFPAY ==
--- NOTE | 2024-12-07 08:10 | ED_ITS ---
HPI - URI/Sore Throat General Chief Complaint: Upper Respiratory Infection Stated Complaint: sore throat/congestion Time Seen by Provider: 12/07/24 08:15 Source: patient, RN notes reviewed and old records reviewed Mode of arrival: ambulatory Limitations: no limitations History of Present Illness HPI Narrative: 39-year-old female presents to the [facility] with 12 hours of a sore scratchy throat, nasal congestion, ear congestion. Denies fevers. Does take daily Zyrtec and Flonase. No other treatment prior to arrival. Denies fevers, cough, chest pain. Related Data Home Medications ?Medication ?Instructions ?Recorded ?Confirmed ?Last Taken ?Type cetirizine 10 mg tablet (Zyrtec) 10 mg PO DAILY 02/06/23 12/29/23 Unknown History fluticasone propionate 50 2 spray intranasal DAILY 02/06/23 12/29/23 Unknown History mcg/actuation nasal spray,suspension sertraline 25 mg tablet 25 mg PO DAILY 12/29/23 12/29/23 Unknown History azelastine 137 mcg (0.1 %) nasal intranasal 10/11/24 Unknown History spray Allergies Allergy/AdvReac Type Severity Reaction Status Date / Time No Known Allergies Allergy Verified 12/07/24 08:15 Review of Systems Review of Systems: All systems reviewed & are unremarkable except as noted in HPI and below Constitutional: Constitutional: Reports no additional constitutional complaints ENT: Reports as per HPI Cardiovascular: Cardiovascular: Reports no additional cardiovascular complaints, Denies chest pain and Denies dyspnea Respiratory: Respiratory: Reports no additional respiratory complaints, Denies chest congestion, Denies cough and Denies dyspnea Musculoskeletal: Musculoskeletal: Reports no additional musculoskeletal complaints Integumentary/Breasts: Skin/Breast: Reports system reviewed and no additional complaints, except as docu PMFSH Past Medical History Medical History Patient denies medical problems Social History Social History Smoking status: Never smoker Comments At the time of my signature, I reviewed and agree with the nursing past medical, surgical, social, and family history. There is no relevant family history pertinent to the patient complaint. Exam Const: General: cooperative, healthy appearing, comfortable, no acute distress, well developed, alert and well nourished Nutritional Appearance: well nourished Orientation/consciousness: patient oriented x3 Limitations: no limitations HENMT: Head: normal to inspection Ears: hearing grossly normal bilaterally, external ears normal, TM's normal bilaterally, EAC's normal, mastoids normal and no periauricular adenopathy Face/Nose/Sinus: Normal external nose present and Nasal discharge present clear Mouth: Yes Normal oral and palatal mucosa pre sent, Yes lip normal, Yes tongue normal and Yes moist mucous membranes Throat: postnasal drainage (Clear) Eyes: General: appearance normal, both eyes and all related structures Alignment and Position: alignment normal Neck: Neck: normal visual inspection, full ROM, no lymphadenopathy and no meningeal signs Chest: Chest palpation & inspection: normal inspection of the chest Resp: Effort & Inspection: normal respiratory effort and able to speak in complete sentences Auscultation: clear to auscultation bilaterally, no crackles, no rales, no rhonchi and no wheezes Cardio: Rate: regular rate Skin: General skin exam: normal color and no rashes or lesions noted Neuro: General: patient oriented x3, gait normal, moves all extremities and no meningeal signs Cognition (Neuro): normal cognition Speech: normal speech Gait exam (Neuro): Normal gait present Extrem: General: normal to inspection, full ROM, capillary refill normal and normal gait Psych: Appearance: grossly normal and well kempt Mental Status: mental status grossly normal Speech and movement: Normal speech and movement present and Clear speech present Affect: normal affect Attitude: cooperative Course Course Level of Care: Express Care Visit Vital Signs Vital signs: Vital Signs Temperature 98.0 F 12/07/24 08:15 Pulse Rate 77 12/07/24 08:15 Respiratory Rate 20 12/07/24 08:15 Blood Pressure 120/84 12/07/24 08:15 Pulse Oximetry 100 12/07/24 08:15 Oxygen Delivery Room Air 12/07/24 08:15 Temperature 98.0 F 12/07/24 08:15 Pulse Rate 77 12/07/24 08:15 Respiratory Rate 20 12/07/24 08:15 Blood Pressure 120/84 12/07/24 08:15 Pulse Oximetry 100 12/07/24 08:15 Oxygen Delivery Room Air 12/07/24 08:15 Reviewed MDM - URI/Sore Throat MDM Narrative Medical decision making narrative: Patient sitting in exam room. Patient is nontoxic, vitals stable. Patient presents with 12 hours of symptoms. Patient's flu, COVID, strep were negative, will send for strep culture Patient appropriate for outpatient treatment of viral URI Discharge instructions reviewed with patient, as well as provided in writing per nursing staff. The instructions also include specific and strict return/GO TO THE ER as well as f/u information. All questions have been answered, and the patient deny any further questions with discharge and discharge plan. Some parts of this dictation were generated by voice recognition software and may contain typographical and/or grammatical inaccuracies. Differential Diagnosis Differential diagnosis: Likely upper respiratory infection, otitis media, sinusitis, viral infection, bronchitis, influenza and pharyngitis Lab Data Labs: Lab Results 12/07/24 Range/Units 08:26 POC Influenza A Ag Negative (Negative) POC Influenza B Ag Negative (Negative) POC SARS CoV-2 Ag Negative (Negative) POC Grp A Strep Screen Negative (Negative) Reviewed Critical Care Time Critical Care Time Critical Care Time: No Discharge Plan Discharge Clinical Impression: Upper respiratory infection Qualifiers: URI type: unspecified viral URI Qualified Code(s): J06.9 - Acute upper respiratory infection, unspecified Patient Disposition: Home Condition: Stable Instructions: Antibiotic Form, Upper Respiratory Infection (ED), Postnasal Drip (DC) Additional Instructions: Your rapid strep swab was negative today at [facility]. A throat culture will be sent to the laboratory for further testing. If the test is positive, you will receive a phone call within 48 hours and an appropriate antibiotic will be initiated at that time. Your rapid COVID test were negative Your rapid flu test was negative Your symptoms are likely due to a viral illness, which is not treated with antibiotics. Typically viral infections last 7-10 days, can linger for couple of weeks. It is very important to treat your symptoms. Drink plenty of water, Gatorade, Pedialyte, ice pops or Jell-O. -Alternate Tylenol and Motrin per package directions for fever or pain. You can alternate every 4 hours -Antihistamine medication such as Zyrtec/Claritin/Leatha during the day can help improve symptoms. -doing daily nasal irrigations can help relieve pressure your sinuses. Things like a Neti pot -Use Flonase twice a day for 5 days then daily to help reduce the inflammation and dry up your sinuses. -You can also use Mucinex. Be sure to drink plenty of water with this medication at least 8 ounces with every dose and it is important to drink 8 to 10 glasses of water per day. Water is a natural decongestant -Eat and drink things that are easy to swallow, like tea or soup, or popsicles. -Oral rinses such as: Salt water gargles and/or may use topical anesthetic (eg. Chloraseptic spray) or lozenges to relieve dryness or throat pain). -Frequent hand washing or hand gun perforator is one of the best ways to prevent spread of infection. -Using a vaporizer or humidifier at night will also help thin secretions and help with coughing up phlegm. -Follow up with primary care provider in 7-10 days if condition is not improving - For new or worsening symptoms go directly to the nearest ER Patient Language: Omani Prescriptions: No Action sertraline 25 mg tablet 25 mg PO DAILY meclizine 25 mg tablet 25 mg PO BID PRN (Reason: dizziness) Qty: 15 0RF azelastine 137 mcg (0.1 %) spray,non-aerosol INTRANASAL cetirizine [Zyrtec] 10 mg Tablet 10 mg PO DAILY fluticasone propionate 50 mcg/actuation spray,suspension 2 spray INTRANASAL DAILY Follow-up/Referrals: Shen,MARY Peterson [Primary Care Provider] - 2 Weeks (express care follow up ) Stand Alone Forms: Work/School Release IP Time of Disposition: 08:50
[2024-12-07 08:15] VITALS: BP 120/84; PULSE 77; RESP 20; TEMP 36.7; O2SAT 100
[2024-12-07 08:46] LABS: EDCOVIDSCREEN Negative (Negative); EDINFLUASCREEN Negative (Negative); EDINFLUBSCREEN Negative (Negative); EDSTREPNEGPOS1 Negative (Negative)
== END 2024-12-07 08:53 | disposition home or self-care (01) ==
PROVIDERS: Emergency Provider Nurse Practitioner; PCP Physician Assistant
DX: J06.9 Acute upper respiratory infection, unspecified (principal); Z20.822 Contact with and (suspected) exposure to COVID-19
CPT/HCPCS: 87081; 87426; 87804; 87880; 99213; G0463